=== PATIENT | male | born 1985 | race African-American/Black ===

== ENCOUNTER 2022-03-16 12:00 | Emergency (ER) | payer MEDICAID ==
[~2022-03-16] VITALS: Ht 170.2 cm; Wt 64.0 kg
[2022-03-16 12:16] VITALS: BP 114/69
[2022-03-16] MEDS ORDERED: ACET10DR15 LEFT EAR (15:08)
== END 2022-03-16 15:33 | disposition home or self-care (01) ==
LOC: ER 12:00
DX: H60.92 Unspecified otitis externa, left ear (principal)
CPT/HCPCS: 99282